=== PATIENT | female | born 1960 ===

== ENCOUNTER 2023-04-22 13:04 | Outpatient (REF) | payer OTHER, SELFPAY | END 2023-04-22 13:05 | disposition home or self-care (01) | LOC: HO.SH 13:04 | PROVIDERS: PCP Pediatrics; Visit Provider Pediatrics | DX: H90.3 Sensorineural hearing loss, bilateral (principal) | CPT/HCPCS: 92557 ==

== ENCOUNTER 2023-05-10 15:13 | Outpatient (REF) | payer OTHER, SELFPAY ==
--- NOTE | 2023-05-11 09:04 | MHC.AU.HA3 ---
Hearing Instrument Follow-Up- Binaural Date of Visit: 05/10/23 Right Ear: Kehinde, Model, Color, Serial Number: Otis Hayden [id number] SN: [id number] Color: Judye [employer] Technician Repair Warranty: 09/27/2022 Electronic Warfare Technician Loss and Damage Warranty: 09/27/2022 Battery Size: 13 Propellant Charge Loader/Slim Tube: 1M Earmold/Dome/CShell/SlimTip:Medium open dome (no retention tail) Type of Wax Guard: CeruShield Dispensed By: [facility] Date of Fitting: June 2019 Left Ear: Kehinde, Model, Color, Serial Number: Otis Hayden [id number] SN: [id number] Color: Renée Electronic Warfare Technician Repair Warranty: 09/27/2022 Electronic Warfare Technician Loss and Damage Warranty: 09/27/2022 Battery Size: 13 Propellant Charge Loader/Slim Tube: 1M Earmold/Dome/CShell/SlimTip: Medium open dome (no retention tail) Type of Wax Guard: CeruShield Dispensed By: [facility] Date of Fitting: June 2019 Follow-Up Summary: Devora returned with her hearing aids which she reported were not working. Upon inspection, the right hearing aid case has bite spears, reportedly from Devora's dog. Initially, neither hearing aid was amplifying even after cleaning, vacuuming microphones, and replacing domes and wax guards. Replaced both receivers and hearing aids starting working again. Did not have time to reprogram hearing aids as Devora was 15 minutes late to her appointment. However, Devora was happy with the sound quality now that the hearing aids were working again. Devora reported that she will likely return to [facility] for hearing aid services as she lives closer to that office. Recommendations: Hearing instrument follow-up or maintenance as needed. Please contact our clinic with any questions or concerns. Recommendations (Other): Devora will schedule an appointment for full reprogramming if issues with sound quality arise. Diagnosis Code(s): Primary Diagnosis: H90.3 Bilateral Sensorineural Hearing Loss Signature: Provider: Lazaro Aquino, [facility]
== END 2023-05-10 15:14 | disposition home or self-care (01) ==
LOC: HO.HAP 15:13
PROVIDERS: Visit Provider Pediatrics
DX: Z46.1 Encounter for fitting and adjustment of hearing aid (principal); H90.3 Sensorineural hearing loss, bilateral
CPT/HCPCS: V5299